=== PATIENT | female | born 1945 | race Caucasian/White ===

== ENCOUNTER 2018-08-21 17:56 | Observation (INO) ==
[2018-08-21] MEDS ORDERED: 0.9 % Sodium Chloride 1,000 ML IVC ONE (18:24)
[2018-08-21 19:03] LABS: Basophils # 0.1 K/mcL (0.0-0.2); Basophils % 0.8 %; Eosinophils # 0.2 K/mcL (0.0-0.6); Eosinophils % 1.8 %; Hematocrit 39.6 % (35.3-44.9); Hemoglobin 12.9 g/dL (11.5-15.4); Immature Granulocytes % 0.5 % (0-4); Lymphocytes # 2.4 K/mcL (0.6-4.6); Lymphocytes % 23.9 %; Mean Corpuscular HGB Conc 32.6 g/dL (31.6-35.5); Mean Corpuscular Hemoglobin 31.6 pg (28.0-33.3); Mean Corpuscular Volume 97.1 fL (83.0-100.0); Mean Platelet Volume 9.9 fL (9.4-12.4); Monocytes # 0.7 K/mcL (0.0-1.3); Monocytes % 7.2 %; Neutrophils # 6.6 K/mcL (1.6-8.9); Platelet Count 251 K/mcL (140-400); Red Blood Count 4.08 M/mcL (3.82-4.97); Red Cell Distribution Width 12.9 % (11.5-14.5); Segmented Neutrophils % 65.8 %
[2018-08-21 19:23] LABS: BUN/Creatinine Ratio 14 (6-26); Blood Urea Nitrogen 13 mg/dL (8-23); Calcium 9.4 mg/dL (8.6-10.3); Carbon Dioxide 24 mEq/L (23-29); Chloride 104 mEq/L (98-107); Glucose 179 mg/dL (70-105); Osmolality,Calculated 289 (280-300); Sodium 137 mEq/L (136-145); eGFR For Non-African Americans 60 (> 60)
--- NOTE | 2018-08-21 19:40 | Emergency Department Note ---
Disposition Clinical Impression: Syncope and collapse, Abrasion of knee, bilateral Shoulder abrasion Qualifiers: Encounter type: initial encounter Laterality: left Qualified Code(s): S40.212A - Abrasion of left shoulder, initial encounter Abrasion of head Qualifiers: Encounter type: initial encounter Qualified Code(s): S00.91XA - Abrasion of unspecified part of head, initial encounter Disposition: Admitted As Inpatient Condition: Fair Referrals: Elizabeth Thakur MD [Primary Care Provider] - Forms: ED Satisfaction Letter Time of Disposition: 20:52 General Adult HPI - General Chief complaint: ED Syncope Stated complaint: fall, injury Time Seen by Provider: 08/21/18 17:58 - History of Present Illness Pain Scale: 9 - Related Data Home Medications Medication Instructions Recorded Confirmed Nabuntine 10/30/17 Simvastatin 10/30/17 Gabapentin Enacarbil 01/09/18 Oyster Shell 250 mg + Vit D Tb 01/09/18 Allergies Allergy/AdvReac Type Severity Reaction Status Date / Time cephalexin [From Keflex] AdvReac Diarrhea Verified 01/09/18 14:23 Past Medical History - Past Medical History Medical history: Reports: hyperlipidemia, other Surgical history: Reports: angioplasty/stent, cholecystectomy, hysterectomy Psychiatric history: Reports: anxiety, depression BUTCHER SCULLION history: Reports: no BUTCHER SCULLION history - Social History Smoking Status: Current every day smoker Smokeless Tobacco Status: No Alcohol use: Reports: none Drug use: Reports: none Physical Exam - General General appearance: alert Course Vital Signs Temperature 99.1 F 08/21/18 18:05 Pulse Rate 79 08/21/18 18:05 Respiratory Rate 16 08/21/18 18:05 Blood Pressure 99/68 08/21/18 18:05 O2 Sat by Pulse Oximetry 94 08/21/18 18:05 Temperature 99.1 F 08/21/18 18:05 Pulse Rate 72 08/21/18 18:48 Respiratory Rate 18 08/21/18 20:03 Blood Pressure 100/67 08/21/18 20:03 O2 Sat by Pulse Oximetry 92 08/21/18 20:03 Oxygen Delivery Oxygen Delivery Room Air Medical Decision Making - Lab Data Result diagrams: 08/21/18 18:50 08/21/18 18:50 Lab Results 08/21/18 08/21/18 Range/Units 18:50 18:50 WBC 10.0 (4.3-11.1) K/mcL RBC 4.08 (3.82-4.97) M/mcL Hgb 12.9 (11.5-15.4) g/dL Hct 39.6 (35.3-44.9) % MCV 97.1 (83.0-100.0) fL MCH 31.6 (28.0-33.3) pg MCHC 32.6 (31.6-35.5) g/dL RDW 12.9 (11.5-14.5) % Plt Count 251 (140-400) K/mcL MPV 9.9 (9.4-12.4) fL Immature Gran % 0.5 (0-4) % Seg Neutrophils % 65.8 % Lymphocytes % 23.9 % Monocytes % 7.2 % Eosinophils % 1.8 % Basophils % 0.8 % Neutrophils # 6.6 (1.6-8.9) K/mcL Lymphocytes # 2.4 (0.6-4.6) K/mcL Monocytes # 0.7 (0.0-1.3) K/mcL Eosinophils # 0.2 (0.0-0.6) K/mcL Basophils # 0.1 (0.0-0.2) K/mcL Sodium 137 (136-145) mEq/L Potassium 4.0 (3.5-5.1) mEq/L Chloride 104 (98-107) mEq/L Carbon Dioxide 24 (23-29) mEq/L BUN 13 (8-23) mg/dL Creatinine 0.92 (0.60-1.20) mg/dL Est GFR ( Amer) > 60 (> 60) Est GFR (Non-Af Amer) 60 (> 60) BUN/Creatinine Ratio 14 (6-26) Glucose 179 H (70-105) mg/dL Calculated Osmolality 289 (280-300) Calcium 9.4 (8.6-10.3) mg/dL Attestation Statement - Attestation Attestation: I examined this patient and my medical decision-making was reviewed with the COURTESY CAR DRIVER/PA/Advanced Practice Nurse/Resident Physician. I agree with the documented findings, disposition and treatment plan as described except to the extent set forth below. Patient had a syncopal episode. She denies any seizure or shaking activity, biting of the tongue or blood in the mouth or incontinence. No pain in the head, neck, chest, abdomen or back. She is bright and alert and speaking with me normally. We do have an evaluation here and then the patient will be admitted for further evaluation of syncope. Current blood pressure systolic 99. She is nontoxic in appearance. I did review her EKG showed normal sinus rhythm with rate of 81 and is normal except for some minimal T-wave flattening in lead aVL but no acute ischemic change. 194
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
[2018-08-21] MEDS ORDERED: Naloxone 0.4 MG/ML INJ IVP PRN ×2 (20:35→22:01)
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
[2018-08-21 22:48] LABS: Estimated Average Glucose 134 mg/dl; Hemoglobin A1C 6.3 %
[2018-08-21] MEDS: *HR* Heparin 5,000 UNIT/ML VIAL SQ SCH (23:37)
[2018-08-21] MEDS: 0.9 % Sodium Chloride 1,000 ML IVC SCH (23:37)
[2018-08-22] MEDS ORDERED: Acetaminophen 325 MG TABLET PO PRN (00:16)
[2018-08-22 07:41] LABS: Hematocrit 38.2 % (35.3-44.9); Hemoglobin 12.1 g/dL (11.5-15.4); Mean Corpuscular HGB Conc 31.7 g/dL (31.6-35.5); Mean Corpuscular Hemoglobin 31.1 pg (28.0-33.3); Mean Corpuscular Volume 98.2 fL (83.0-100.0); Mean Platelet Volume 10.3 fL (9.4-12.4); Platelet Count 217 K/mcL (140-400); Red Blood Count 3.89 M/mcL (3.82-4.97)
[2018-08-22] MEDS: 0.9 % Sodium Chloride 1,000 ML IVC SCH (08:19)
[2018-08-22 08:37] LABS: BUN/Creatinine Ratio 15 (6-26); Blood Urea Nitrogen 10 mg/dL (8-23); Calcium 8.5 mg/dL (8.6-10.3); Carbon Dioxide 22 mEq/L (23-29); Chloride 111 mEq/L (98-107); Glucose 87 mg/dL (70-105); Osmolality,Calculated 288 (280-300); Potassium 4.1 mEq/L (3.5-5.1); Sodium 140 mEq/L (136-145); eGFR For Non-African Americans > 60 (> 60)
[2018-08-22 09:02] LABS: Amphetamine Screen,Urine Negative ng/mL (Cutoff=1000); Barbiturate Screen,Urine Negative ng/mL (Cutoff=200); Benzodiazepines Screen,Urine Negative ng/mL (Cutoff=200); Cannabinoid Screen,Urine Positive ng/mL (Cutoff = 50); Cocaine Screen,Urine Negative ng/mL (Cutoff= 300); Opiate Screen,Urine Negative ng/mL (Cutoff=300); Phencyclidine Screen,Urine Negative ng/mL (Cutoff=25)
--- NOTE | 2018-08-22 09:16 | Electrocardiograph Report ---
[address] [place], [place] [address] Test Date: 2018-08-21 Pat Name: Coretta Cisneros Department: EXAM8 Room: 3B Gender: F Compensation And Benefits Advisor: : 1945 Requested By: Shlomo George Order Number: [id number] Reading MD: Erin Nice Measurements Intervals [place] Rate: 81 P: 64 IN: 169 QRS: 59 QRSD: 96 T: 56 QT: 395 QTc: 459 Interpretive Statements Sinus rhythm Electronically Signed On 08-22-2018 9:15:11 EDT by Erin Nice
[2018-08-22] MEDS: *HR* Heparin 5,000 UNIT/ML VIAL SQ SCH (09:38)
[2018-08-22 13:43] VITALS: BP 132/82
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
--- NOTE | 2018-08-22 15:24 | Physician Discharge Referral ---
Home Health/Hosp Referral Info Transfer to: Home Health Provider in Charge Post Discharge: PCP - Diagnosis (1) Syncope and collapse Status: Acute (2) Shoulder abrasion Status: Acute (3) Tongue paralysis Status: Chronic (4) Miranda-Danlos disease Status: Acute (5) Hyperlipidemia Status: Chronic (6) Peripheral neuropathy Status: Chronic (7) DVT prophylaxis Status: Acute (8) Tobacco abuse Status: Chronic - Respiratory Orders Smoking Cessation: Smoking cessation has been advised. For more information, call the [place] Tobacco Quit Line at 0-072-XFNX-NOW. - Services Needed Following services are medically necessary services: Nursing, Physical Therapy, Occupational Therapy - Transfer Medications Prescriptions: Gabapentin [Neurontin] 100 mg PO HS #30 capsule Nicotine Patch [Nicoderm] 21 mg TD DAILY #30 patch.td24 Home Medications: Calcium Carbonate/Vitamin D3 [Oyster Shell Calcium-Vit D Tab] 1 tab PO DAILY 08/21/18 [History] Citalopram Hydrobromide [Citalopram HBr] 40 mg PO DAILY 08/21/18 [History] Simvastatin [Zocor] 20 mg PO DAILY 08/21/18 [History] Gabapentin [Neurontin] 100 mg PO HS #30 capsule 08/22/18 [Rx] Nicotine Patch [Nicoderm] 21 mg TD DAILY #30 patch.td24 08/22/18 [Rx] Allergies/Adverse Reactions: Allergy/AdvReac Type Severity Reaction Status Date / Time cephalexin [From Keflex] AdvReac CONSTIPATION/ Verified 08/21/18 22:50 RECTAL BLEEDING Certification: Further, I certify that my clinical findings support that this patient is homebound (i.e. absences from home require considerable and taxing effort and are for medical reasons or scientologist services or infrequently or short duration when for other reasons) because: Homebound Reason: Patient requires assistance of a person or device to safely leave home Attestation: My signature below is to certify that this patient is under my care and that I, or nurse practitioner, or a physician's dental laboratory assistant working with me, has a [id number] encounter with this patient.
== END 2018-08-22 15:34 | disposition home or self-care (01) ==
LOC: EMEROOARM 17:56 → 3BNU 17:56
PROVIDERS: ADMIT Internal Medicine; ATTEND Internal Medicine

== ENCOUNTER 2018-10-04 10:12 | Inpatient (IN) ==
--- NOTE | 2018-10-04 08:38 | Discharge Summary ---
<Derrick Del Rio - Last Filed: 10/04/18 08:33> Orders not resulted at time of discharge: Pending orders 10/04/18 08:30 XR post op reverse apex LT [XR] Routine Hemoglobin and Hematocrit [HEME] Routine Date of Encounter: 10/04/18 - Discharge Diagnosis (1) Rotator cuff tear arthropathy of left shoulder Priority: Primary Status: Chronic (2) Status post reverse total replacement of left shoulder Priority: Primary Status: Acute (3) Miranda-Danlos disease Priority: Secondary Status: Chronic (4) Hyperlipidemia Priority: Secondary Status: Chronic Qualifiers: Hyperlipidemia type: unspecified Qualified Code(s): E78.5 - Hyperlipidemia, unspecified (5) Peripheral neuropathy Priority: Secondary Status: Chronic Qualifiers: Peripheral neuropathy type: polyneuropathy, unspecified Qualified Code(s): G62.9 - Polyneuropathy, unspecified (6) Tobacco abuse Priority: Secondary Status: Chronic - Hospital Course Hospital course: Ms. Cisneros is a 73 year old female - Time Spent with Patient Total time spent providing and/or coordinating discharge services: - Discharge Medications Prescriptions: New OxyCODONE Immed Rel [Roxicodone 5 MG] 5 mg PO Q6HR PRN 5 Days #20 tablet PRN Reason: Pain Enoxaparin [Lovenox] 30 mg SQ Q12HCO 14 Days #28 syringe Docusate [Colace] 100 mg PO BID capsule Continued Calcium Carbonate/Vitamin D3 [Oyster Shell Calcium-Vit D Tab] 1 tab PO DAILY Citalopram Hydrobromide [Citalopram HBr] 40 mg PO DAILY Simvastatin [Zocor] 20 mg PO DAILY Home Medications: Calcium Carbonate/Vitamin D3 [Oyster Shell Calcium-Vit D Tab] 1 tab PO DAILY 08/21/18 [History] Citalopram Hydrobromide [Citalopram HBr] 40 mg PO DAILY 08/21/18 [History] Simvastatin [Zocor] 20 mg PO DAILY 08/21/18 [History] OxyCODONE Immed Rel [Roxicodone 5 MG] 5 mg PO Q6HR PRN 5 Days #20 tablet 10/04/18 [Rx] Docusate [Colace] 100 mg PO BID capsule 10/07/18 [Rx] Enoxaparin [Lovenox] 30 mg SQ Q12HCO 14 Days #28 syringe 10/07/18 [Rx] Allergies/Adverse Reactions: Allergy/AdvReac Type Severity Reaction Status Date / Time cephalexin [From Keflex] AdvReac CONSTIPATION/ Verified 10/04/18 11:09 RECTAL BLEEDING Primary care physician: Elizabeth Thakur - Patient Status Disposition: Transfer SNF Condition: Good - Discharge Instructions Follow Up With: Elizabeth Thakur MD [Primary Care Provider] - <Keerthi Vargas - Last Filed: 10/07/18 11:09> Orders not resulted at time of discharge: Pending orders 10/04/18 10:40 US anesthesia pain block [US] Stat 10/04/18 12:42 Surgical Pathology [PTH] Routine Date of Encounter: 10/07/18 Time of Encounter: 08:04 - Discharge Diagnosis (1) Rotator cuff tear arthropathy of left shoulder Priority: Primary Status: Chronic (2) Status post reverse total replacement of left shoulder Priority: Primary Status: Acute (3) Miranda-Danlos disease Priority: Secondary Status: Chronic (4) Hyperlipidemia Priority: Secondary Status: Chronic Qualifiers: Hyperlipidemia type: unspecified Qualified Code(s): E78.5 - Hyperlipidemia, unspecified (5) Peripheral neuropathy Priority: Secondary Status: Chronic Qualifiers: Peripheral neuropathy type: polyneuropathy, unspecified Qualified Code(s): G62.9 - Polyneuropathy, unspecified (6) Tobacco abuse Priority: Secondary Status: Chronic (7) CAD (coronary artery disease) Priority: Secondary Status: Chronic Qualifiers: Coronary Disease-Associated Artery/Lesion type: unspecified vessel or lesion type [place] vs. transplanted heart: unspecified whether [place] or transplanted heart Associated angina: angina presence unspecified Qualified Code(s): I25.10 - Atherosclerotic heart disease of [place] coronary artery without angina pectoris (8) H/O deep venous thrombosis Priority: Secondary Status: Chronic - Hospital Course Hospital course: Ms. Cisneros is a 73 year old female POD#3 s/p Total Shoulder Replacment Reverse, left [Left shoulder cuff tear arthropathy] by Dr. Del Rio on 10/04/18 Patient seen at bedside. A&Ox3. Sling to left arm. Dressing and incision c/d/i. No calf tenderness, erythema, or warmth. Neurovascularly intact b/l UE. Labwork, vitals, and medications reviewed. Pain control: Adequate Participating in therapy. All questions and concerns addressed. Educated on use of incentive spirometer, ambulation, and hydration. Patient educated on post-operative restrictions and care. Addressed: Awaiting acceptance/auth from ECF for possible discharge today All intraoperative and/or postoperative radiographic studies were satisfactory. Patient course and disposition discussed with Dr. Del Rio D/C plan: ECF when acceptance/auth obtained Outpatient follow up has been arranged. - Time Spent with Patient Total time spent providing and/or coordinating discharge services: Date of admission: 10/04/18 13:52 Primary care physician: Elizabeth Thakur Consults: 10/04/18 13:54 Consult to Occupational Therapy [CONS] Routine Comment: post shoulder surgery Reason for Consult: post shoulder surgery Does patient have active BEDREST order?: No Is patient medically & hemodynamically stable?: Yes Consult to Physical Therapy [CONS] Routine Comment: post shoulder surgery Reason for Consult: post shoulder surgery Does patient have active BEDREST order?: No Is patient medically & hemodynamically stable?: Yes Consult to Sales Special Agent [CONS] Routine Reason for SW Consult: shoulder surgery RT Post Op Consult [CONS] Routine Discharging clinician: Derrick Del Rio Anticipated date of discharge: 10/07/18 - VTE Documentation of Mechanical Device: Venous foot pump, device - Impressions ITS Impressions Shoulder X-Ray 10/04/18 08:30 IMPRESSION: Anatomic alignment status post reverse type left shoulder arthroplasty. No evidence of hardware complication. D/ / South Harris MD / South Harris MD Interpreting Provider: South Harris MD - Patient Status Functional capacity at discharge: independent ambulation Overall status at discharge: patient is progressing back to baseline - Diet and Activity Activity: as per physical therapy Diet: advance to your usual diet
--- NOTE | 2018-10-04 10:37 | History & Physical Report ---
Date of Encounter: 10/04/18 Time of Encounter: 10:37 24 Hour HP Update - Instructions Instructions: If the History and Physical is less than 30 days old and was completed prior to A.M. admission and or procedure and has NOT been updated on calendar day of procedure please complete this update prior to performing procedure. - Update Patient reports changes in Medical Condition: No Changes in examination, assessment, or condition: No Changes in Medication: No Preop tests/diagnostics Reviewed: Yes Surgery Remains Indicated: Yes Consent for Planned Operative Procedure(s) Verified: Yes - Pre-Operative Checklist Preoperative Checklist Indicated: No Prophylactic Antibiotic Ordered: Yes Is VTE Prophylaxis Indicated?: Yes
[2018-10-04] MEDS ORDERED: Acetaminophen IV 1,000 MG/100 ML INFUS..BTL IVPB ONE (10:40)
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
[2018-10-04] MEDS ORDERED: Clindamycin 900 MG/50 ML 900 MG/50 ML IV.SOLN IVPB ONE (10:49)
[2018-10-04] MEDS ORDERED: Ringers Solution, Lactated 1,000 ML IVC SCH ×2 (11:00→11:45)
[2018-10-04] MEDS: Albuterol 2.5 MG/3 ML NEBULIZER IH ONE ×2 (11:16→14:35)
[2018-10-04] MEDS ORDERED: Ropivacaine/PF 0.5% 30 ML VIAL ONE (11:39)
[2018-10-04] MEDS ORDERED: ROPIVACAINE/PF/NS 0.25% 1 EACH SYRINGE INTRAART ONE (11:39)
[2018-10-04] MEDS ORDERED: *HR* OxyCODONE Immed Rel 5 MG TABLET PO PRN (11:40)
[2018-10-04] MEDS ORDERED: *HR* FentaNYL (PF) 100 MCG/2 ML VIAL IVP PRN (11:40)
[2018-10-04] MEDS ORDERED: Ondansetron 4 MG/2 ML VIAL IVP ONE (11:40)
[2018-10-04] MEDS ORDERED: Ethanol\\Acetic Acid\\Na Ace\\Ben 1,000 ML IRRIG.SOLN IR ONE (11:44)
[2018-10-04] MEDS ORDERED: Lidocaine -MPF 2% 2 ML VIAL ONE (12:10)
[2018-10-04] MEDS ORDERED: Ondansetron 4 MG/2 ML VIAL ONE (12:10)
[2018-10-04] MEDS ORDERED: Lidocaine -MPF 4% 5 ML AMPUL ONE (12:10)
[2018-10-04] MEDS ORDERED: *HR* Succinylcholine 200 MG/10 ML VIAL IVP ONE (12:10)
[2018-10-04] MEDS ORDERED: *HR* Propofol 200 MG/20 ML VIAL IVP ONE ×2 (12:10→14:02)
[2018-10-04] MEDS ORDERED: *HR* FentaNYL (PF) 100 MCG/2 ML VIAL ONE (12:10)
[2018-10-04] MEDS ORDERED: Dexamethasone 4 MG/ML VIAL ONE (12:10)
[2018-10-04] MEDS ORDERED: *HR* PHENYLEPHRINE 1,000 MCG/10 ML SYRINGE IVP ONE (12:11)
[2018-10-04] MEDS ORDERED: EPHEDrine 50 MG/ML VIAL ONE (12:22)
--- NOTE | 2018-10-04 12:47 | Anesthesia Procedures ---
Date of Encounter: 10/04/18 Time of Encounter: 11:35 Procedures: Anesthesia - Nerve Block Procedure Date: 10/04/18 Time: 11:35 Allergies/Adv Reactions: keflex Pre-op Diagnosis: left shoulder arthritis Surgical Procedure: left shoulder reverse Checklist: Correct Patient Identifier, Correct procedure (i), History checked Correct side: Left Blood Thinner: No Monitor Applied: EKG, BP, Pulse Oximetry Supplemental Oxygen via Nasal Cannula (L/min): 2 Sedation: Fentanyl (mcg): 100 Indication: Post Op Analgesia Pre-op Neuro Deficits: No Block Type: Supraclavicular (icb/scp) Catheter placed: No Sterile Technique: Yes Ultrasound used: Yes Anatomy identified: Yes Visual spread of Local: Yes Neuro Stimulation: No Blood on Needle Aspiration: No Smooth Injection of Local: Yes Pain with Injection of Local: No Prep: Chlorhexadine Needle: 22 x 50 mm Stimuplex Local: Ropivacaine (0.5% with 8mg decadron 30ml /icb/scp ropi 0.25% 20ml ) Volume (cc): 50 Number of Attempts: 1 Complications: None/effective block Vitals: Vital Signs - Last 8 Hours Temp Pulse Resp BP Pulse Ox 10/04/18 11:55 62 16 118/74 94 10/04/18 11:42 61 16 105/62 93 10/04/18 11:30 66 16 112/64 91 10/04/18 10:51 98.0 F 64 18 111/78 95 10/04/18 10:44 98.0 F 64 18 111/78 95 Intake and Output 10/03/18 10/04/18 10/04/18 23:59 07:59 15:59 Intake Total 50 / 50 Balance 50 / 50 Intake: IV Fluids 50 / 50 Cleocin Premix 900 MG/50 ML 900 50 / 50 mg In 50 ml @ 100 mls/hr IVPB PREOP ONE Rx#:[id number] Other: Weight 66.678 kg Patient Weight 10/04/18 23:59 Weight 66.678 kg
--- NOTE | 2018-10-04 12:53 | Orthopedic Operative Note ---
Date of procedure: 10/04/18 Pre-op diagnosis: Left shoulder cuff tear arthropathy Post-op diagnosis: same Procedure: Procedure: Total Shoulder Replacment Reverse, left Estimated blood loss: 50 cc Hardware: Metal and polyethylene replacement: Arthrex 24, +2 , 25 mm screw glenoid baseplate, 4 locking 5.5 screw, 39+4 glenosphere, 8 apex humeral stem, poly insert 6 Exam Under anesthesia: Full motion no instability Procedural Notes: Grade 4 4 arthritic changes humeral head glenoid socket, rotator cuff tear Operative procedure: The patient was brought to the operating room and placed on the operating room table. After general anesthesia was administered the operative shoulder was examined. Findings were noted. The patient was placed in the modified beachchair position. All pressure points were padded appropriately. And the head was stabilized in the neutral position. The operative extremity was prepped and draped in the sterile surgical fashion. The patient received IV antibiotics prior to skin incision. A standard deltopectoral approach was made to the operative shoulder. Incision was made to the skin and subcutaneous tissue,hemo stasis was obtained with Bovie cautery. Using careful blunt dissection the cephalic vein was identified and mobilized medially. The deltopectoral interval was developed and the clavipectoral fascia was incised. The subscap was released off the lesser tuberosity and tagged with #2 FiberWire suture subscap was irreparable. The humerus was dislocated patient noted to have tear supraspinatus tendon, and the humeral cut was made along the anatomic neck. Patient noted to have grade 4 arthritic changes humeral head glenoid socket. Anterior and posterior Bankart retractors were placed to expose the glenoid. The glenoid guide was seated and the centering hole was made. It was reamed with the appropriate reamer. The 24, +2, 25 mm screw, baseplate was seated and secured with 4 locking 5.5 screw. The baseplate was irrigated and dried and the 39+4 Glenosphere was seated and secured with the Resendiz taper. The Resendiz taper was tested and found to be secure, glenosphere fixation was secondarily secured with the central screw. The humerus was redislocated and prepared with the diaphyseal reamers, followed by a broaching process up to the appropriate size 8 in the patient's anatomic version. The metaphyseal reamer was then utilized. Trial reduction found the shoulder to be relocatable. Trial components were removed and 8 stem was impacted in place in the patient's anatomic version. Trial reduction found the shoulder to be relocatable and stable with the appropriate 6. Trial component was removed and the real implant was seated and secured the shoulder was reduced. The shoulder had excellent motion and excellent stability and no evidence of dislocation. The deep tissue was irrigated with pulse irrigation. The deltopectoral interval was closed with a running #1 PDS suture, subcutaneous tissue was irrigated and closed with 0 PDS suture, the skin was closed with Dermabond. The patient was placed in a sterile dressing, abduction brace and extubated. The patient was then transferred to the recovery room in stable condition. Anesthesia: GETA Surgeon: Derrick Del Rio Was there an campaign assistant present: No Estimated blood loss (cc): 50 Condition: stable Disposition: PACU
[2018-10-04 13:37] LABS: Hematocrit 35.9 % (35.3-44.9)
--- NOTE | 2018-10-04 13:38 | Anesthesia Evaluation Post Op ---
Date of Encounter: 10/04/18 Time of Encounter: 13:37 - Lungs Lungs: Clear Ascult./Percussion - Airway Airway: Non-obstructed - Cardiovascular Regular Rate - Mental Status Mental Status: Alert & Oriented, Answers Appropriately - Pain Pain Scale: 0 Pain Scale used: Numeric (1 - 10) - Nausea Vomiting Nausea Vomiting: Not Present - Hydration Hydration: Ice chips - Discharge PostOp Status: Transfer Patient to floor
[2018-10-04] MEDS ORDERED: MOM Conc 10 ML UD.LIQ PO PRN (13:54)
[2018-10-04] MEDS ORDERED: Ondansetron 4 MG/2 ML VIAL IVP PRN (13:54)
[2018-10-04] MEDS ORDERED: Sennosides 8.6 MG TABLET PO PRN (13:54)
[2018-10-04] MEDS ORDERED: Temazepam 15 MG CAPSULE PO PRN (13:54)
[2018-10-04] MEDS ORDERED: traMADol 50 MG TABLET PO PRN (13:54)
[2018-10-04] MEDS: Clindamycin 900 MG/50 ML 900 MG/50 ML IV.SOLN IVPB SCH (15:12)
[2018-10-04] MEDS: Ringers Solution, Lactated 1,000 ML IVC SCH (15:12)
--- NOTE | 2018-10-04 17:07 | Physician Discharge Referral ---
<Keerthi Townsend - Last Filed: 10/04/18 17:03> ExtendedCare Referral Info Transfer To: [facility] Provider in Charge: Dr. 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 (7) Hyperlipidemia Priority: Secondary Status: Chronic (8) Peripheral neuropathy Priority: Secondary Status: Chronic (9) Tobacco abuse Priority: Secondary Status: Chronic Expected Duration of Placement: <30 days Prognosis: Good Aware of Diagnosis: Patient Aware of Prognosis: Patient - Transfer Medications Prescriptions: Enoxaparin [Lovenox] 30 mg SQ Q12HCO 14 Days #28 syringe Home Medications: Calcium Carbonate/Vitamin D3 [Oyster Shell Calcium-Vit D Tab] 1 tab PO DAILY 08/21/18 [History] Citalopram Hydrobromide [Citalopram HBr] 40 mg PO DAILY 08/21/18 [History] Simvastatin [Zocor] 20 mg PO DAILY 08/21/18 [History] OxyCODONE Immed Rel [Roxicodone 5 MG] 5 mg PO Q6HR PRN 5 Days #20 tablet 10/04/18 [Rx] Docusate [Colace] 100 mg PO BID capsule 10/07/18 [Rx] Enoxaparin [Lovenox] 30 mg SQ Q12HCO 14 Days #28 syringe 10/07/18 [Rx] Allergies/Adverse Reactions: Allergy/AdvReac Type Severity Reaction Status Date / Time cephalexin [From Keflex] AdvReac CONSTIPATION/ Verified 10/04/18 11:09 RECTAL BLEEDING - Respiratory Orders Smoking Cessation: Smoking cessation has been advised. For more information, call the [place] Tobacco Quit Line at 1-117-CPEP-NOW. - Ancillary Orders May use pressure relief devices daily prn, May go on KRISTA w/family/respon democrat w/meds at nurse discretion PRN, May consult with Dentist, Crystal Grower, Press Box Custodian PRN - Advance Directives Code Status: Full Code - Mobility Orders Chair, Ambulate - Rehabiliation Orders Rehab Potential: Good Rehab Orders: ROM Exercises, Evaluation for Physical Therapy, Evaluation for Occupational Therapy Other: Opsite dressing, leave intact until first post-operative visit. Zipline/Rajesh in place, plan to remove at post-operative day #14-16. If dressing becomes >50% saturated, contact office, remove dressing and place appropriate dressing in its place. Do not allow for dressing to get wet. Shoulder Precautions x 6 weeks. Apply cold therapy wrap 3-6x/day for 20 minutes at a time. Encourage ambulation throughout the day. Use Incentive spirometer 10x/hour. Elevate affected extremity above heart as tolerated. NWB to affected upper extremity x 6 weeks. Will remove brace at first post-operative appointment. OK to remove during PT/OT and Home exercises. - Treatments Skin tear care topically daily PRN per policy - Diet Orders Regular CERTIFICATION: I certify that the transfer of the above named patient to an Extended Care Facility is necessary for the continuing treatment of the diagnosis listed. The above information is true and accurate reflection of patient's current condition. Confidential - Redisclosure prohibited without a patient's written consent. <Keerthi Vargas - Last Filed: 10/07/18 11:10> - Diagnosis (1) Rotator cuff tear arthropathy of left shoulder Status: Chronic (2) Status post reverse total replacement of left shoulder Status: Acute (3) Miranda-Danlos disease Status: Chronic (4) Hyperlipidemia Status: Chronic (5) Peripheral neuropathy Status: Chronic (6) Tobacco abuse Status: Chronic (7) CAD (coronary artery disease) Status: Chronic (8) H/O deep venous thrombosis Status: Chronic - Respiratory Orders Smoking Cessation: Smoking cessation has been advised. For more information, call the [place] Tobacco Quit Line at 0-303-SRZH-NOW. CERTIFICATION: I certify that the transfer of the above named patient to an Extended Care Facility is necessary for the continuing treatment of the diagnosis listed. The above information is true and accurate reflection of patient's current condition. Confidential - Redisclosure prohibited without a patient's written consent.
[2018-10-04] MEDS ORDERED: *HR* Enoxaparin 30 MG/0.3 ML SYRINGE SQ SCH (18:00)
[2018-10-04] MEDS: *HR* Enoxaparin 30 MG/0.3 ML SYRINGE SQ SCH (19:07)
[2018-10-04] MEDS: *HR* OxyCODONE/APAP 5/325 TABLET PO PRN (21:17)
[2018-10-05] MEDS: Clindamycin 900 MG/50 ML 900 MG/50 ML IV.SOLN IVPB SCH (00:08)
[2018-10-05 03:58] LABS: Hematocrit 38.6 % (35.3-44.9); Hemoglobin 12.2 g/dL (11.5-15.4)
[2018-10-05 04:15] LABS: BUN/Creatinine Ratio 19 (6-26); Blood Urea Nitrogen 17 mg/dL (8-23); Calcium 8.7 mg/dL (8.6-10.3); Carbon Dioxide 21 mEq/L (23-29); Chloride 105 mEq/L (98-107); Glucose 201 mg/dL (70-105); Osmolality,Calculated 287 (280-300); Potassium 4.3 mEq/L (3.5-5.1); Sodium 135 mEq/L (136-145); eGFR For African Americans > 60 (> 60); eGFR For Non-African Americans > 60 (> 60)
[2018-10-05] MEDS: *HR* Enoxaparin 30 MG/0.3 ML SYRINGE SQ SCH ×2 (05:21→18:36)
[2018-10-05] MEDS: *HR* OxyCODONE/APAP 5/325 TABLET PO PRN ×2 (08:20→15:20)
--- NOTE | 2018-10-05 15:10 | Orthopedics Progress Note ---
Date of Encounter: 10/05/18 Time of Encounter: 15:08 Subjective Principal diagnosis: Status post left total shoulder arthroplasty Interval history: Patient with minimal pain Left shoulder sling with pillow in place Incision is clean dry intact, dressing clean She has good motion of the hand and is grossly neurovascular intact distally Assessment: Postoperative day #1, stable Plan: Continue OT/PT, removal of abduction wedge today Continue DVT prophylaxis Discharge planning to rehabilitation Objective Vital signs: Vital Signs Temp Pulse Resp BP Pulse Ox 10/05/18 10:45 98.2 F 69 16 99/57 94 10/05/18 08:01 98.8 F 77 16 146/71 97 10/05/18 05:16 99.0 F 60 16 101/53 95 10/04/18 23:32 98.4 F 78 15 103/66 93 10/04/18 19:42 98.2 F 88 16 120/70 96 10/04/18 17:35 98.4 F 72 16 126/62 94 10/04/18 16:20 98.1 F 78 14 116/62 95 10/04/18 15:15 98.2 F 76 16 108/58 93 Intake and Output 10/04/18 10/05/18 10/05/18 23:59 07:59 15:59 Intake Total 450 / 500 400 / 1440 1040 / 1440 Output Total 420 / 420 Balance 450 / 450 -20 / 1020 1040 / 1020 Intake: IV Fluids 50 / 100 800 / 800 Lactated Ringers 1,000 ML @ 75 800 / 800 mls/hr IVC .[id number] DARIO Rx#: [id number] Cleocin Premix 900 MG/50 ML 900 50 / 50 mg In 50 ml @ 50 mls/hr IVPB Q8HR DARIO Rx#:[id number] Oral 400 / 400 400 / 640 240 / 640 Output: Urine 420 / 420 Other: Meal Breakfast Percent of Meal Consumed 100% # Voids 1 Weight 66.7 kg Blood Glucose* 219 Patient Weight 10/05/18 23:59 Weight 66.7 kg - Labs CBC & BMP: 10/05/18 03:21 10/05/18 03:21 Labs: Abnormal lab results Hgb 11.0 g/dL (11.5-15.4) L 10/04/18 13:22 Sodium 135 mEq/L (136-145) L 10/05/18 03:21 Carbon Dioxide 21 mEq/L (23-29) L 10/05/18 03:21 Glucose 201 mg/dL (70-105) H 10/05/18 03:21 POC Glucose 219 mg/dL (70-99) H 10/05/18 00:32 Consult Discharge Plan - Plan Referrals: Eliazbeth Thakur MD [Primary Care Provider] -
[2018-10-05] MEDS: Ringers Solution, Lactated 1,000 ML IVC SCH (18:38)
[2018-10-05] MEDS: *HR* OxyCODONE Immed Rel 5 MG TABLET PO PRN (20:11)
[2018-10-06] MEDS: *HR* OxyCODONE Immed Rel 5 MG TABLET PO PRN ×2 (00:52→05:11)
[2018-10-06] MEDS: *HR* Enoxaparin 30 MG/0.3 ML SYRINGE SQ SCH ×2 (05:11→17:48)
[2018-10-06] MEDS ORDERED: Ketorolac 15 MG/ML VIAL IVP PRN (06:39)
[2018-10-06 07:23] LABS: Hematocrit 38.4 % (35.3-44.9); Hemoglobin 12.3 g/dL (11.5-15.4)
[2018-10-06 07:41] LABS: BUN/Creatinine Ratio 18 (6-26); Blood Urea Nitrogen 14 mg/dL (8-23); Calcium 8.6 mg/dL (8.6-10.3); Carbon Dioxide 24 mEq/L (23-29); Chloride 104 mEq/L (98-107); Glucose 120 mg/dL (70-105); Osmolality,Calculated 282 (280-300); Potassium 4.1 mEq/L (3.5-5.1); Sodium 135 mEq/L (136-145); eGFR For African Americans > 60 (> 60); eGFR For Non-African Americans > 60 (> 60)
[2018-10-06] MEDS: *HR* OxyCODONE/APAP 5/325 TABLET PO PRN ×2 (09:39→17:48)
--- NOTE | 2018-10-06 16:10 | Orthopedics Progress Note ---
Date of Encounter: 10/06/18 Time of Encounter: 16:09 Subjective Principal diagnosis: Status post left total shoulder arthroplasty Interval history: Patient with minimal pain Left shoulder sling without pillow in place Incision is clean dry intact, dressing clean She has good motion of the hand and is grossly neurovascular intact distally Assessment: Postoperative day #2, stable Plan: Continue OT/PT Continue DVT prophylaxis Discharge planning to rehabilitation tomorrow Objective Vital signs: Vital Signs Temp Pulse Resp BP Pulse Ox 10/06/18 11:58 98.3 F 71 18 104/67 94 10/06/18 08:55 129/86 10/06/18 07:22 99.7 F H 66 20 175/99 90 10/06/18 04:08 98.6 F 72 18 169/86 93 10/05/18 22:23 98.5 F 62 20 144/75 93 10/05/18 20:39 95 10/05/18 19:42 98.5 F 65 18 124/75 93 10/05/18 16:33 98.4 F 82 17 108/67 92 Intake and Output 10/06/18 10/06/18 10/06/18 07:59 15:59 23:59 Intake Total 50 / 650 600 / 650 Output Total 800 / 1100 300 / 1100 Balance -750 / -450 300 / -450 Intake: Oral 600 / 600 Free Water 50 / 50 Output: Urine 800 / 1100 300 / 1100 Other: Meal Breakfast Percent of Meal Consumed 100% Weight 67.72 kg Patient Weight 10/06/18 23:59 Weight 67.72 kg - Labs CBC & BMP: 10/06/18 06:50 10/06/18 06:50 Labs: Abnormal lab results Hgb 11.0 g/dL (11.5-15.4) L 10/04/18 13:22 Sodium 135 mEq/L (136-145) L 10/06/18 06:50 Carbon Dioxide 21 mEq/L (23-29) L 10/05/18 03:21 Glucose 120 mg/dL (70-105) H 10/06/18 06:50 POC Glucose 219 mg/dL (70-99) H 10/05/18 00:32 Consult Discharge Plan - Plan Referrals: Elizabeth Thakur MD [Primary Care Provider] -
--- NOTE | 2018-10-06 18:19 | Electrocardiograph Report ---
[address] [place], [place] [address] Test Date: 2018-10-05 Pat Name: Coretta Cisneros Department: 114 Room: [facility] Gender: F Handle Bender: [id number] : 1945 Requested By: Derrick Del Rio Order Number: [id number] Reading MD: Erin Nice Measurements Intervals [place] Rate: 65 P: 39 VT: 169 QRS: 25 QRSD: 95 T: 62 QT: 407 QTc: 419 Interpretive Statements SINUS RHYTHM NONSPECIFIC ST-WAVE ABNORMALITY Electronically Signed On 10-06-2018 18:17:43 EDT by Erin Nice
[2018-10-07] MEDS: *HR* OxyCODONE Immed Rel 5 MG TABLET PO PRN (01:24)
--- NOTE | 2018-10-07 06:43 | Orthopedics Progress Note ---
Date of Encounter: 10/07/18 Time of Encounter: 06:43 - Assessment and Plan (1) Rotator cuff tear arthropathy of left shoulder Current Visit: No Status: Chronic (2) Status post reverse total replacement of left shoulder Current Visit: No Status: Acute (3) Miranda-Danlos disease Current Visit: No Status: Chronic (4) Hyperlipidemia Current Visit: No Status: Chronic Qualifiers: Hyperlipidemia type: unspecified Qualified Code(s): E78.5 - Hyperlipidemia, unspecified (5) Peripheral neuropathy Current Visit: No Status: Chronic Qualifiers: Peripheral neuropathy type: polyneuropathy, unspecified Qualified Code(s): G62.9 - Polyneuropathy, unspecified (6) Tobacco abuse Current Visit: No Status: Chronic Subjective Principal diagnosis: Status post left total shoulder arthroplasty Interval history: Patient was seen this morning doing well without complaints. Afebrile vital signs stable. Operative extremity: Neurovascularly intact Dressing clean dry and intact Calves nontender Assessment and plan: Continue with postoperative care Discharged today Objective Vital signs: Vital Signs Temp Pulse Resp BP Pulse Ox 10/07/18 03:34 98.6 F 77 18 144/82 93 10/06/18 22:20 98.4 F 70 20 152/91 96 10/06/18 19:49 99.3 F 78 18 126/80 93 10/06/18 16:51 98.2 F 71 19 132/78 94 10/06/18 11:58 98.3 F 71 18 104/67 94 10/06/18 08:55 129/86 10/06/18 07:22 99.7 F H 66 20 175/99 90 Intake and Output 10/06/18 10/06/18 10/07/18 15:59 23:59 07:59 Intake Total 600 / 1100 450 / 1100 50 / 50 Output Total 300 / 1450 350 / 1450 700 / 700 Balance 300 / -350 100 / -350 -650 / -650 Intake: Oral 600 / 1050 450 / 1050 50 / 50 Output: Urine 300 / 1450 350 / 1450 700 / 700 Other: Meal Breakfast Percent of Meal Consumed 100% # Voids 1 Weight 70.8 kg Patient Weight 10/07/18 23:59 Weight 70.8 kg - Labs CBC & BMP: 10/06/18 06:50 10/06/18 06:50 Labs: Abnormal lab results Hgb 11.0 g/dL (11.5-15.4) L 10/04/18 13:22 Sodium 135 mEq/L (136-145) L 10/06/18 06:50 Carbon Dioxide 21 mEq/L (23-29) L 10/05/18 03:21 Glucose 120 mg/dL (70-105) H 10/06/18 06:50 POC Glucose 219 mg/dL (70-99) H 10/05/18 00:32 Consult Discharge Plan - Plan Referrals: Elizabeth Thakur MD [Primary Care Provider] -
[2018-10-07] MEDS: *HR* Enoxaparin 30 MG/0.3 ML SYRINGE SQ SCH (06:49)
[2018-10-07] MEDS: *HR* OxyCODONE/APAP 5/325 TABLET PO PRN (10:20)
[2018-10-07 11:09] VITALS: BP 128/82
--- NOTE | 2018-10-07 11:09 | Event Note ---
Date of Encounter: 10/07/18 Time of Encounter: 08:00 Ms. Cisneros is a 73 year old female POD#3 s/p Total Shoulder Replacment Reverse, left [Left shoulder cuff tear arthropathy] by Dr. Del Rio on 10/04/18 Patient seen at bedside. A&Ox3. Sling to left arm. Dressing and incision c/d/i. No calf tenderness, erythema, or warmth. Neurovascularly intact b/l UE. Labwork, vitals, and medications reviewed. Pain control: Adequate Participating in therapy. All questions and concerns addressed. Educated on use of incentive spirometer, ambulation, and hydration. Patient educated on post-operative restrictions and care. Addressed: Awaiting acceptance/auth from ECF for possible discharge today All intraoperative and/or postoperative radiographic studies were satisfactory. Patient course and disposition discussed with Dr. Del Rio D/C plan: ECF when acceptance/auth obtained Outpatient follow up has been arranged.
== END 2018-10-07 13:57 | DRG 483 ==
LOC: SAMDAY 10:12 → 3NENU 13:52
PROVIDERS: ADMIT Orthopaedic Surgery; ATTEND Orthopaedic Surgery